=== PATIENT | female | born 2000 | race Two or more races ===

== ENCOUNTER 2024-10-28 13:04 | Emergency (ER) | payer OTHER ==
[~2024-10-28] VITALS: Ht 317.5 cm; Wt 54.9 kg
[2024-10-28] MEDS ORDERED: DIPHENHYDRAMINE HCL 50 MG/ML VIAL 1ML IM ONE (13:45)
[2024-10-28] MEDS ORDERED: METHYLPREDNISOLONE SOD SUCC 125 MG VIAL IM ONE (14:00)
[2024-10-28] MEDS ORDERED: BENADRYL ITCH28.3 G1 TOP (14:09)
[2024-10-28] MEDS ORDERED: BENADRYL ALLERG25 MG PO (14:09)
[2024-10-28] MEDS ORDERED: 0.9 % SODIUM CHLORIDE 1,000 ML IV ONE (14:15)
== END 2024-10-28 15:00 | disposition home or self-care (01) ==
LOC: ER 13:04
DX: B08.1 Molluscum contagiosum (principal); R21 Rash and other nonspecific skin eruption